=== PATIENT | male | born 1975 | race Caucasian/White ===

== ENCOUNTER → 2019-12-13 12:28 | Outpatient (BNVA) | payer OTHER, SELFPAY | PROVIDERS: PCP Internal Medicine; Visit Provider Orthopaedic Surgery | DX: M25.562 Pain in left knee (principal); Z98.890 Other specified postprocedural states | CPT/HCPCS: 99024; 99212 ==

== ENCOUNTER → 2020-01-31 13:31 | Outpatient (BNVA) | payer OTHER, SELFPAY | PROVIDERS: Visit Provider Orthopaedic Surgery | DX: Z98.890 Other specified postprocedural states (principal) | CPT/HCPCS: 20610; 99212; J1040 ==

== ENCOUNTER 2020-02-27 09:00 | Outpatient (RCR) | payer OTHER, SELFPAY ==
--- NOTE | 2020-02-27 10:32 | MHC.PT.DC ---
[facility] [place] [facility] [place] [facility] [place] Office [address] [phone] F: [phone] F: [phone] F: [phone] F: [phone] Physical Therapy Discharge Report Diagnosis: HX OF MENISCECTOMY OF L KNEE. (OCT 27, 2019) Date of Surgery: 10/27/19 Date of Evaluation: 11/25/19 Date of Discharge: Treatments to Date: 24 Cancellations to Date: 0 No Shows to Date: 0 Discharge Status: Discharge Summary: HAS MET MOST PT GOALS, GOOD PERF EX/STRETCHES,(CONTINUES WITH CLICK IN KNEE) DIST BLUE TB AND INFO FOR [employer] (REPORTS HE HAS HAD MEMBERSHIP TO [email or web address] IN PAST). LEFI TODAY =86% (52% AT SOC) Electronically signed by: TACHO LUDWIG PT Please sign and return to therapist. Thank you for your referral.
--- NOTE | 2020-03-17 16:22 | MHC.PT.DC ---
[facility] [place] [facility] [place] Office [address] [phone] F: [phone] F: [phone] F: [phone] F: [phone] Physical Therapy Discharge Report Diagnosis: HX OF MENISCECTOMY OF L KNEE. (OCT 27, 2019) Date of Surgery: 10/27/19 Date of Evaluation: 11/25/19 Date of Discharge: 02/27/20 Treatments to Date: 24 Cancellations to Date: 0 No Shows to Date: 0 Discharge Status: Achieved Goals Improved Function Independent with HEP Discharge Summary: HAS MET MOST PT GOALS, GOOD PERF EX/STRETCHES,(CONTINUES WITH CLICK IN KNEE) DIST BLUE TB AND INFO FOR [employer] (REPORTS HE HAS HAD MEMBERSHIP TO [facility] IN PAST). LEFI TODAY =86% (52% AT SOC) [ End ] Electronically signed by: TACHO LUDWIG PT Please sign and return to therapist. Thank you for your referral.
== END 2020-03-21 13:39 | disposition other institution (70) ==
LOC: HO.PT 09:00
PROVIDERS: Visit Provider Physician Assistant
DX: Z47.89 Encounter for other orthopedic aftercare (principal); Z98.890 Other specified postprocedural states
CPT/HCPCS: 97035; 97110; 97140; 97530

== ENCOUNTER → 2020-03-13 09:44 | Outpatient (BNVA) | payer OTHER, SELFPAY | PROVIDERS: PCP Internal Medicine; Visit Provider Orthopaedic Surgery | DX: Z76.89 Persons encountering health services in other specified circumstances (principal) ==

== ENCOUNTER 2023-11-03 13:54 | Outpatient (AMB) | payer OTHER, SELFPAY ==
--- NOTE | 2023-11-03 13:57 | AM.OFFWIN_ITS ---
Intake Intake Visit Reasons: EP dizzy, nausea Intake Note: pt c/o Patient Tobacco Use Status: Never used Tobacco Allergies No Known Allergies [No Known Allergies*] Allergy (Verified 09/04/21 11:36) PFSH Medical History Bilateral post-traumatic osteoarthritis of knee Complex tear of medial meniscus, current injury, left knee, subsequent encounter Surgical History History of meniscectomy of left knee S/P left knee arthroscopy Family History Father CVD (cardiovascular disease) Mother No problems noted. 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
--- NOTE | 2023-11-03 13:57 | MHC.OFFWIV ---
Intake Vital Signs 11/03/23 13:58 Height 5 ft 11 in Weight 213 lb BMI 29.7 BP 120/82 Blood Pressure Location Rt brachial Position Sitting Pulse 66 Pulse Source Pulse Oximeter Pulse Oximetry (%) 98 Oxygen Delivery Method Room Air Intake Visit Reasons: EP dizzy, nausea Intake Note: Patient here for dizziness and nausea that started today. Patient Tobacco Use Status: Never used Tobacco Allergies No Known Allergies [No Known Allergies*] Allergy (Verified 11/03/23 13:59) Do you need a note to return to daycare/school/sports/work: Yes HPI EP dizzy, nausea HPI Details This is a 48-year-old male patient who presents to the walk-in clinic today with report of nausea, vomiting, intermittent dizziness starting this morning. Denies exposure to sick contacts, however did recently travel back from the [place] while on vacation. Reports he vomited twice today, and continues to have some ongoing nausea. Has been able to eat and stay hydrated. Denies any headache or upper respiratory symptoms. Denies any abdominal pain or diarrhea. Denies any dizziness at this current time. Denies any chest pain or palpitations. [facility] Medical History Bilateral post-traumatic osteoarthritis of knee Complex tear of medial meniscus, current injury, left knee, subsequent encounter Surgical History History of meniscectomy of left knee S/P left knee arthroscopy Family History Father CVD (cardiovascular disease) Mother No problems noted. 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 Current occupational exposures/hazards: No Cognitive needs: No Hearing needs: No Vision needs: No Review of Systems Const All systems reviewed & are unremarkable except as noted in HPI and below Physical Exam Vital Signs: Last Vital Signs Pulse 66 11/03/23 13:58 BP 120/82 11/03/23 13:58 Pulse Ox 98 11/03/23 13:58 Oxygen Delivery Method Room Air 11/03/23 13:58 BMI result Body Mass Index 29.7 Const General: cooperative and no acute distress Orientation/consciousness: patient oriented x3 HEENT Head: Yes normal to inspection Ears: hearing grossly normal bilaterally and TM's normal bilaterally General nose exam: Normal external nose present and Normal nasal mucous membranes and turbinates present Face and sinus: Yes normal facial exam Mouth: Normal oral and palatal mucosa present Throat: Yes posterior oropharynx normal Eyes Pupils: Equal, round and reactive pupils present and Pupil accommodation reflex normal EOM: EOMs intact bilaterally Direct Ophthalmoscopy: normal light reflex and no photophobia Neck Neck: Yes no lymphadenopathy Resp Effort & Inspection: normal respiratory effort Auscultation: clear to auscultation bilaterally Cardio Rate: regular rate Rhythm: regular rhythm GI Inspection: Yes normal to inspection Palpation (GI): Soft to palpation (nontender) Skin General skin exam: no rashes or lesions noted Neuro General: patient oriented x3 and gait normal Cranial nerves: Yes Equal, round and reactive pupils present and Yes Nystagmus not present Extrem General: Yes capillary refill normal and Yes no clubbing, cyanosis or edema Psych Appearance: grossly normal Mental Status: mental status grossly normal Speech and movement: Normal speech and movement present Assessment & Plan Assessment & Plan (1) Nausea & vomiting: Code(s): R11.2 - Nausea with vomiting, unspecified Qualifiers: Vomiting type: unspecified Qualified Code(s): R11.2 - Nausea with vomiting, unspecified Plan: Symptoms consistent with likely viral illness. Vitals and assessment are normal at this time. I have prescribed patient on ondansetron for his nausea, and we reviewed indications, use, possible side effects of medication. We discussed importance of adequate hydration and healthy food intake as tolerated. I provided him with a work note as requesting and also sent a viral swab for COVID/flu/RSV. Patient aware he will be notified with results once these are available. If dizziness worsens or new symptoms develop, he can return to the clinic for further evaluation. We otherwise reviewed conservative measures. He verbalizes understanding and agrees to plan. Orders: Orders SARS-CoV2/FLU/RSV Today J06.9 - Acute upper respiratory infection, unspecified Medications: New ondansetron HCl Take one tablet every 8 hours by mouth as needed for nausea/vomiting. 4 mg PO Q8H PRN 14 tabs 0RF nausea and vomiting R11.2 - Nausea with vomiting, unspecified Coding Level of Care Code Est Pt Level 4 (79162) Diagnoses Nausea and vomiting, unspecified vomiting type R11.2 Vomiting type: unspecified
[2023-11-03 13:58] VITALS: BP 120/82; PULSE 66; O2SAT 98; BMI 29.7
== END 2023-11-03 15:04 | disposition home or self-care (01) ==
PROVIDERS: PCP Hospitalist; Visit Provider Nurse Practitioner Family
DX: R11.2 Nausea with vomiting, unspecified (principal)
CPT/HCPCS: 99214

== ENCOUNTER 2023-11-03 14:53 | Outpatient (REF) | payer OTHER, SELFPAY ==
[2023-11-03 18:36] LABS: Influenza A PCR NEGATIVE (Negative); Influenza B PCR NEGATIVE (Negative); Resp Syncy Virus RNA Qual PCR NEGATIVE (Negative); SARS COV2 PCR INHOUSE NEGATIVE (Negative)
== END 2023-11-03 14:54 | disposition home or self-care (01) ==
LOC: HO.LAB 14:53
PROVIDERS: Visit Provider Nurse Practitioner Family
DX: J06.9 Acute upper respiratory infection, unspecified (principal)
CPT/HCPCS: 0241U

== ENCOUNTER 2024-11-30 04:07 | Emergency (ER) | payer OTHER, SELFPAY ==
--- NOTE | ~2024-11-30 | CT_ITS ---
CLINICAL HISTORY: ? of renal colic, CT abdomen and pelvis without contrast Comparison: None provided Findings: No consolidation or effusion. The gallbladder and solid organs are within normal limits. No renal stones. No bowel obstruction, pneumoperitoneum, or pneumatosis. Pelvic contents unremarkable. The appendix appears nondilated and noninflamed. No fluid collections or adenopathy. No vascular dilation. The bones are intact. IMPRESSION: No acute findings. No bowel obstruction, biliary obstruction or obstructive uropathy. Unremarkable appendix. This document has been electronically signed by: Gabriela Marsh MD on 11/30/2024 06:03:44
[2024-11-30 04:08] VITALS: BP 139/96; PULSE 80; RESP 18; TEMP 37; O2SAT 97; BMI 31.8
[2024-11-30 04:31] LABS: MANUAL DIFF FLAG NO
[2024-11-30 04:34] LABS: Hematocrit 46.6 % (42.0-52.0); Hemoglobin 16.2 g/dl (14.0-18.0); Imm Gran Abs Auto 0.03 X10*3/uL (0.00-0.03); Imm Gran Pct Auto 0.3 % (0.0-0.4); Lymphocytes Absolute Auto 1.7 X10*3/uL (1.2-4.9); Mean Corpuscular HGB Conc 34.8 g/dl (31.0-36.0); Mean Corpuscular Hemoglobin 30.2 pg (27.0-33.0); Mean Corpuscular Volume 86.8 fL (80.0-98.0); NRBC Abs Auto 0.000 X10*3/uL (0.0-0.012); NRBC Pct Auto 0.0 /100WBC (0.0-0.2); Platelet Count 249 X10*3/uL (160-400); Red Blood Count 5.37 X10*6/uL (4.60-5.80); White Blood Count 9.7 X10*3/uL (4.8-10.8)
[2024-11-30 04:45] LABS: Alanine Aminotransferase 25 U/L (0-40); Albumin Level 4.6 g/dL (3.5-5.0); Alkaline Phosphatase 80 U/L (39-117); Anion Gap 14 (12-20); Aspartate Amino Transferase 19 U/L (5-37); Blood Urea Nitrogen 18 mg/dL (9-16); Calcium 9.5 mg/dL (8.4-10.2); Carbon Dioxide 25 mmol/L (22-29); Chloride 106 mmol/L (96-108); Creatinine Clr Calc Pharmacy 109.4; Estimated Glomerular Filt Rate > 60; Lipase 15 U/L (8-78); Magnesium 2.0 mg/dL (1.6-2.6); Potassium 4.2 mmol/L (3.3-5.1); Sodium 141 mmol/L (135-145); Total Protein 7.5 g/dL (6.5-8.0)
--- NOTE | 2024-11-30 05:07 | ED_ITS ---
HPI - General Adult General Chief complaint: Abdominal Pain Stated complaint: abd pain Time Seen by Provider: 11/30/24 04:38 Source: patient Limitations: no limitations and language barrier History of Present Illness ED Provider: Yari Darling PA-C HPI narrative: 49-year-old male with a history of alcohol use disorder, obesity, BPV, anxiety depression, hypertension who presents with abdominal pain since yesterday evening. Patient developed acute onset cramping over suprapubic region. Associated nausea vomiting. Denies dysuria, hematuria, history of kidney stones. Denies mid back pain, flank pain, diarrhea. Patient denies that he is constipated. No abdominal distention or inability to pass flatus. Denies testicular pain or swelling. Related Data Previous Rx's ?Medication ?Instructions ?Recorded acetaminophen 500 mg capsule 1,000 mg (2 x 500 mg) PO TID PRN 05/13/21 pain #90 caps ondansetron HCl 4 mg tablet 4 mg PO Q8H PRN nausea and 11/03/23 vomiting #14 tabs Allergies Allergy/AdvReac Type Severity Reaction Status Date / Time No Known Allergies (No Known Allergy Verified 11/30/24 04:16 Allergies*) Review of Systems 2 Review of Systems: Yes all other systems are reviewed and are negative Constitutional: Constitutional: Denies fatigue and Denies fever(s) Cardiovascular: Cardiovascular: Denies chest pain and Denies dyspnea Respiratory: Respiratory: Denies dyspnea Gastrointestinal: Gastrointestinal: Reports abdominal pain, Denies bloating, Denies constipation, Denies diarrhea, Reports nausea and Reports vomiting Genitourinary: Genitourinary: Denies hematuria, Denies dysuria, Denies flank pain, Denies scrotal swelling and Denies testicular pain Endocrine: Endocrine: Denies fatigue [facility] Past Medical History Attestation statement: The following information was validated with the patient. Medical History Bilateral post-traumatic osteoarthritis of knee Complex tear of medial meniscus, current injury, left knee, subsequent encounter Surgical History History of meniscectomy of left knee S/P left knee arthroscopy Family History Family History Father CVD (cardiovascular disease) Mother No problems noted. 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 Current occupational exposures/hazards: No Cognitive needs: No Hearing needs: No Vision needs: No Physical Exam ED Vital Signs: Vital Signs - 24 hr 11/30/24 04:08 Temperature 98.6 F Pulse Rate 80 Respiratory Rate 18 Blood Pressure 139/96 H Pulse Oximetry 97 Oxygen Delivery Method Room Air BMI result Body Mass Index 31.8 Const Other: Alert, appears uncomfortable Orientation/consciousness: patient oriented x3 Resp Effort & Inspection: normal respiratory effort Cardio Other: Normal peripheral perfusion GI Other: Abdomen is soft, obese, somewhat distended, pain across entire lower abdomen, most focal suprapubic, minimal involuntary guarding to deep palpation General: Yes no CVA tenderness Back/Spine/Pelvis Back: no CVA tenderness Skin Other: Warm dry no rash Neuro General: patient oriented x3, gait normal, no focal motor deficits and CN's II- XI intact bilaterally Psych Other: Cooperative Medications Administered Discontinued Medications Generic Name Dose Route Start Last Admin Trade Name Freq PRN Reason Stop Dose Admin Sodium Chloride 1,000 mls @ 999 mls/hr 11/30/24 05:00 11/30/24 05:11 Ns IV 11/30/24 06:00 999 mls/hr .Q1H1M JOYCELYN Administration Ketorolac Tromethamine 15 mg 11/30/24 04:52 11/30/24 05:11 Ketorolac Tromethamine 15 Mg/Ml Vial IVPUSH 11/30/24 04:53 15 mg ONCE ONE Administration Morphine Sulfate 4 mg 11/30/24 04:52 11/30/24 05:11 Morphine Sulfate 4 Mg/Ml Cartridge IVPUSH 11/30/24 04:53 4 mg ONCE ONE Administration Protocol Ondansetron HCl 4 mg 11/30/24 04:52 11/30/24 05:11 Ondansetron Hcl 4 Mg/2 Ml Vial IVPUSH 11/30/24 04:53 4 mg ONCE ONE Administration Medical Decision Making Medical Decision Making [facility] Narrative: 49-year-old male with a history of alcohol use disorder, obesity, BPV, anxiety depression, hypertension who presents with abdominal pain since yesterday evening. Patient developed acute onset cramping over suprapubic region. Associated nausea vomiting. Denies dysuria, hematuria, history of kidney stones. Denies mid back pain, flank pain, diarrhea. Patient denies that he is constipated. No abdominal distention or inability to pass flatus. Denies testicular pain or swelling. Problem: Hypertension, alcohol use disorder, obesity History: Per patient I have considered the following differential diagnoses: Pyelonephritis, UTI, renal colic, torsion, diverticulitis, constipation, bowel obstruction Plan: Patient having focal pain over the bladder, however he denies urinary symptoms. We will collect a urine sample. He has no flank pain, or CVA tenderness to suggest renal colic or pyelonephritis, however given distribution of discomfort, I am obtaining a CT scan to rule out renal colic. Thought about bowel obstruction, objectively his belly is protuberant, however he denies distention, he has no obstructive symptoms. He could simply just be constipated, although he denies. He has no testicular pain or swelling to suggest torsion. Giving fluids Zofran morphine and Toradol I have independently reviewed the following tests: Labs: No leukocytosis, not anemic, no electrolyte abnormality, urine and fact CT abdomen and pelvis:Comparison: None provided Findings: No consolidation or effusion. The gallbladder and solid organs are within normal limits. No renal stones. No bowel obstruction, pneumoperitoneum, or pneumatosis. Pelvic contents unremarkable. The appendix appears nondilated and noninflamed. No fluid collections or adenopathy. No vascular dilation. The bones are intact. IMPRESSION: No acute findings. No bowel obstruction, biliary obstruction or obstructive uropathy. Unremarkable appendix. Differential Diagnosis Differential Diagnoses: The differential diagnosis associated with the presentation includes See medical decision-making Admission/Observation Consideration of admission/observation: Escalation of care including admission/observation considered Not applicable Lab Data [facility] Lab Attestation statement: I reviewed the patient's lab results. 11/30/24 04:24 11/30/24 04:24 Labs: Lab Results 11/30/24 11/30/24 Range/Units 04:24 05:14 WBC 9.7 (4.8-10.8) X10*3/uL RBC 5.37 (4.60-5.80) X10*6/uL Hgb 16.2 (14.0-18.0) g/dl Hct 46.6 (42.0-52.0) % MCV 86.8 (80.0-98.0) fL MCH 30.2 (27.0-33.0) pg MCHC 34.8 (31.0-36.0) g/dl RDW 13.0 (11.0-16.0) % Plt Count 249 (160-400) X10*3/uL MPV 8.9 L (9.4-12.4) fL Immature Gran % (Auto) 0.3 (0.0-0.4) % Neut % (Auto) 72.1 (45-73) % Lymph % (Auto) 17.7 L (20-40) % Gregory % (Auto) 7.9 (2-11) % Eos % (Auto) 1.7 (0-4) % Baso % (Auto) 0.3 (0-2) % Lymph # (Auto) 1.7 (1.2-4.9) X10*3/uL Gregory # (Auto) 0.8 (0.1-1.2) X10*3/uL Eos # (Auto) 0.2 (0.0-0.4) X10*3/uL Baso # (Auto) 0.0 (0.0-0.2) X10*3/uL Abs Immat Gran (auto) 0.03 (0.00-0.03) X10*3/uL Absolute Neuts (auto) 7.0 (2.0-8.3) x10*3/uL Absolute Nucleated RBC 0.000 (0.0-0.012) X10*3/uL Nucleated RBC % (auto) 0.0 (0.0-0.2) /100WBC Sodium 141 (135-145) mmol/L Potassium 4.2 (3.3-5.1) mmol/L Chloride 106 (96-108) mmol/L Carbon Dioxide 25 (22-29) mmol/L Anion Gap 14 (12-20) BUN 18 H (9-16) mg/dL Creatinine 1.01 (0.5-1.4) mg/dL Estim Creat Clear Calc 109.4 Estimated GFR > 60 Random Glucose 117 H (60-115) mg/dL Calcium 9.5 (8.4-10.2) mg/dL Magnesium 2.0 (1.6-2.6) mg/dL Total Bilirubin 0.9 (0.0-1.0) mg/dL AST 19 (5-37) U/L ALT 25 (0-40) U/L Alkaline Phosphatase 80 (39-117) U/L Total Protein 7.5 (6.5-8.0) g/dL Albumin 4.6 (3.5-5.0) g/dL Lipase 15 (8-78) U/L Urine Color Yellow Urine Appearance Clear Urine pH 5.5 (5.0-9.0) Ur Specific [place] 1.020 (1.005-1.025) Urine Protein Negative (Neg-Trace) mg/dL Urine Glucose (UA) Negative (Negative) mg/dL Urine Ketones Negative (Negative) mg/dL Urine Blood Negative (Negative) Urine Nitrite Negative (Negative) Ur Leukocyte Esterase Negative (Negative) Urine RBC 0-2 (0-2) /HPF Urine WBC 0-5 (0-5) /HPF Ur Squamous Epith Cells 0-2 (0-2) /HPF Urine Bacteria None Seen (None Seen) Hyaline Casts 0-2 (0-2) /LPF Radiology Impression Discussion of test interpretation with radiology: I have reviewed the radiologist's reading. Discharge Plan Discharge Clinical Impression: Abdominal pain, Constipation Patient Disposition: Home, Self-Care Instructions: Constipation (ED), Abdominal Pain (ED) Additional Instructions: You were found to be constipated, there was no acute process on the CT scan. All of your screening labs including your urine sample were normal. See home care instructions. You can use [id number] Colace, this is a stool softener twice a day. Use kjgl-ohb-foenyiv MiraLax, several times a day, until your bowel habits self regulate and you have multiple large volume bowel movements. Follow up with your primary care provider as needed. Prescriptions: No Action acetaminophen 500 mg capsule 1,000 mg PO TID PRN (Reason: pain) Qty: 90 0RF ondansetron HCl 4 mg tablet 4 mg PO Q8H PRN (Reason: nausea and vomiting) Qty: 14 0RF Rx Instructions: Take one tablet every 8 hours by mouth as needed for nausea/vomiting. Stand Alone Forms: Work/School Release Print Language: Samoan
[2024-11-30 05:44] LABS: Appearance Urine Clear; Glucose Urine UA Negative (Negative); PH 5.5 (5.0-9.0); Specific Gravity - Urine 1.020 (1.005-1.025)
--- OUTSIDE RECORDS SUMMARY | 2024-11-30 05:54 | XMS_ITS | Clinical Summary ---
Author Organization [facility] Address [address] [place] [address] Care Team Providers Care Front Edger Name Role Phone Unavailable Primary Care Provider Unavailabl e Source Comments PLEASE NOTE, if this patient is a minor, it may be UNLAWFUL to discuss sensitive information that is contained in these records (such as FAMILY PLANNING, MENTAL HEALTH or SUBSTANCE ABUSE) with the minor patient's parent or other person without the patient's specific authorization.[facility] Immunizations Immunization Administration Dates Next Due Moderna COVID-19 Vaccine, re d cap blue label, 12+ Primary Series 06/25/2020 Social History Tobacco Use Types Packs/Day Years Used Date Smoking Tobacco: Never Assessed Social Connections Answer Date Recorded Connectedness 0 11/12/2023 Financial Resource Strain Answer Date R ecorded Financial Resource Strain 0 2020 Stress Answer Date Recorded Stress 0 02/26/2021 Physical Activity Answer Date Recorded Physical Activity 0 02/26/2021 Food Insecurity Answer Date Recorded Food 0 11/26/2023 Transportation Needs Answer Date Record ed Transportation 0 02/26/2021 Housing Stability Answer Date Recorded Housing 0 02/26/2021 Safety and Environment Answer Date Saroj rded Safety 0 02/26/2021 Utilities Answer Date Recorded Utilities 0 02/26/2021 Employment Answer Date Recorded Stress 0 11/12/2023 Sex and Gender Information Value Date Recorded Sex Assigned at Not on file Legal Sex Male 8:04 AM PDT Gender Identity Not on file Sexual Orientation Not on file Plan of Treatment Health Maintenance Due Date Last Done Comments Anxiety Screening 1976 Diabetes Screening 1976 Hepatitis C Screening 1976 Lipid Screening 1976 Tobacco Screening 1976 HIV Screening 01/07/1991 Hypertension Screening (#1) 01/07/1994 Imm-DTaP/Tdap/Td (1 - Tdap) 01/07/1995 Imm-Hepatitis B (1 of 3 - 19 + 3-dose series) 01/07/1995 CT Colonography 01/07/2021 Colonoscopy 01/07/2021 Colorectal Cancer Screening 01/07/2021 FIT/gFOBT 01/07/2021 Fecal DNA 01/07/2021 Flexible Sigmoidoscopy 01/07/2021 Alcohol and Drug Screen 03/02/2024 Depression Annual Screen 03/02/2024 [id number] ( season) 2024 021, 05/26/2020 Imm-Influenza (#1) 2024 Insurance [facility] [employer]
[2024-11-30 06:32] VITALS: BP 119/81; PULSE 65; RESP 16; TEMP 36.8; O2SAT 96
[2024-11-30 06:43] VITALS: BP 119/81; PULSE 65; RESP 16; TEMP 36.8; O2SAT 96
== END 2024-11-30 06:45 | disposition home or self-care (01) ==
PROVIDERS: Emergency Provider Emergency Medicine; PCP Internal Medicine
DX: K59.00 Constipation, unspecified (principal); R10.9 Unspecified abdominal pain; R11.2 Nausea with vomiting, unspecified
CPT/HCPCS: 36415; 74176; 80053; 81001; 83690; 83735; 85025; 96361; 96374; 96375; 99284; J1885; J2270; J2405

== ENCOUNTER → 2024-11-30 04:47 | Outpatient (BNV) | payer OTHER, SELFPAY | PROVIDERS: Emergency Provider Emergency Medicine; PCP Internal Medicine; Visit Provider Radiology Diagnostic Radiology | DX: R10.24 Suprapubic pain (principal) | CPT/HCPCS: 74176 ==

== ENCOUNTER 2024-12-01 15:10 | Outpatient (AMB) | payer OTHER, SELFPAY ==
[2024-12-01 15:12] VITALS: BP 124/88; PULSE 88; TEMP 36.4; O2SAT 97; BMI 31.6
--- NOTE | 2024-12-01 15:12 | A.OFFPC_ITS ---
Vital Signs 12/01/24 15:12 Height 5 ft 11 in Weight 226 lb 6 oz BMI 31.6 BP 124/88 Blood Pressure Location Lt brachial Position Sitting Pulse 88 Pulse Source Pulse Oximeter Temp 97.5 F Temp Source Temporal Artery Scan Pulse Oximetry (%) 97 Oxygen Delivery Method Room Air Intake Visit Reasons: pain and consumption Geophysical Laboratory Director Required: Yes Geophysical Laboratory Director Language: Korean Allergies No Known Allergies (No Known Allergies*) Allergy (Verified 12/01/24 15:15) Medication List - Last Reconciled 12/01/24 by Denise Cason MD docusate sodium (Dulcolax Stool Softener (docusate)) 100 mg PO DAILY simethicone (Gas Relief (simethicone)) 250 mg PO BID PRN Tobacco use date assessed: 12/01/24 Dental Screening Dental Screen Date: 12/01/24 Did you have a dental visit in the last 12 months?: Yes Did you have a dental problem in the last 6 months where you did not have access to dental care?: No Was dental information given to patient?: Patient has dentist HPI HPI Comments History of Present Illness Details The patient is a 49-year-old male presenting with abdominal pain. The pain began on Thursday at 9 o'clock and was severe enough to warrant a visit to the emergency room the following morning. A CT scan was performed, which showed no significant findings. The patient reports no constipation and has regular bowel movements, with the last one occurring this morning without issues. There is no blood in the stool, and the patient denies any constipation. The patient was prescribed medication for pain management and advised to use Tylenol as needed. The patient was also advised to try Simethicone twice daily and to monitor symptoms. [facility] Medical History Bilateral post-traumatic osteoarthritis of knee Complex tear of medial meniscus, current injury, left knee, subsequent encounter Surgical History History of meniscectomy of left knee S/P left knee arthroscopy Family History Father CVD (cardiovascular disease) Mother No problems noted. Maternal Grandmother Lung cancer Maternal Uncle Lung cancer Sister Cancer Family/Other FH: mental illness Social History Patient Tobacco Use Status: Never used Tobacco e-Cigarette/Vaping Use: Never Used Second Hand Smoke Exposure: No service: No Current occupational status: employed Current occupation: [employer] Current occupational exposures/hazards: No Cognitive needs: No Hearing needs: No Vision needs: No Questionnaire PHQ-9 Over the last 2 weeks, how often have you been bothered by any of the following problems? 1. Little interest or pleasure in doing things: not at all 2. Feeling down, depressed, or hopeless: not at all 3. Trouble falling or staying asleep, or sleeping too much: not at all 4. Feeling tired or having little energy: not at all 5. Poor appetite or overeating: not at all 6. Feeling bad about yourself - or that you are a failure or have let yourself or your family down: not at all 7. Trouble concentrating on things, such as reading the newspaper or watching television: not at all 8. Moving or speaking so slowly that other people could have noticed. Or the opposite - being so fidgety or restless that you have been moving around a lot more than usual: not at all 9. Thoughts that you would be better off or of hurting yourself in some way: not at all Total score: 0 Depression Screening Interpretation: Negative Depression Screening Done: Yes 41618 - PHQ-9 Billing: Yes Source: Developed by Drs. Iván Myrick, Ambar Emerson, Carlos Abel and colleagues, with an educational yanet from [employer]. Thrive Questionnaire Date Thrive assessed: 12/01/24 I am a: Parent/Caregiver What is your living situation today?: I have a steady place to live Within the past 12 months, did the food you bought not last and you didn't have the money to get more?: I choose not to answer this question Within the past 12 months, did you worry whether your food would run out before you got money to buy more?: I choose not to answer this question Do you have trouble paying for medicines?: No Do you have trouble getting transportation to medical appointments?: No Do you have trouble paying your heating and electricity bill?: No Do you have trouble taking care of your child, family member or friend?: No Do you have trouble with day-to-day activities such as bathing, preparing meals, shopping, managing finances, etc.?: No Are you currently unemployed and looking for a job?: No Are you interested in more education?: No Please select the resources that you would like help with: None Currently or been in a relationship where the following occur: No concerns reported THRIVE Score: 0 AUDIT C Alcohol Use Questionnaire (AUDIT-C) 1. How often do you have a drink containing alcohol?: Monthly or less 2. How many drinks containing alcohol do you have on a typical day when you are drinking?: 1 or 2 3. How often do you have six or more drinks on one occasion?: Never Total Score: 1 LEYLA-7 AMB Questionnaire LEYLA-7 Date LEYLA - 7 assessed: 12/01/24 Feeling nervous, anxious, or on edge: 0 = Not at all Not being able to stop or control worryin = Not at all Worrying too much about different things: 0 = Not at all Trouble relaxin = Not at all Being so restless that it is hard to sit still: 0 = Not at all Becoming easily annoyed or irritable: 0 = Not at all Feeling afraid as if something awful might happen: 0 = Not at all Total LEYLA-7 score (0-4 normal; 5-9 mild; 10-14 moderate; 15-21 severe): 0 Source: Developed by Drs. Iván Myrick, Ambar Emerson, Carlos Abel and colleagues, with an educational yanet from [employer]. LEYLA-7 Assessment Billing LEYLA-7 Assessment Tool: LEYLA-7 Assessment 89231 Review of Systems Const Details: Positives besides what was mentioned in HPI are in BOLD Constitutional: No Weight Change, No Fever, No Chills, No Night Sweats, No Fatigue, No Malaise ENT/Mouth: No Hearing Changes, No Ear Pain, No Nasal Congestion, No Sinus Pain, No Hoarseness, No sore throat, No Rhinorrhea, No Swallowing Difficulty Eyes: No Eye Pain, No Swelling, No Redness, No Foreign Body, No Discharge, No Vision Changes Cardiovascular: No Chest Pain, No SOB, No PND, No Dyspnea on Exertion, No Orthopnea, No Claudication, No Edema, No Palpitations Respiratory: No Cough, No Sputum, No Wheezing, No Smoke Exposure, No Dyspnea Gastrointestinal: No Nausea, No Vomiting, No Diarrhea, No Constipation, No Pain, No Heartburn, No Anorexia, No Dysphagia, No Hematochezia, No Melena, No Flatulence, No Jaundice Genitourinary: No Dysmenorrhea, No DUB, No Dyspareunia, No Dysuria, No Urinary Frequency, No Hematuria, No Urinary Incontinence, No Urgency, No Flank Pain, No Urinary Flow Changes, No Hesitancy Musculoskeletal: No Arthralgias, No Myalgias, No Joint Swelling, No Joint Stiffness, No Back Pain, No Neck Pain, No Injury History Skin: No Skin Lesions, No Pruritis, No Hair Changes, No Breast/Skin Changes, No Nipple Discharge Neuro: No Weakness, No Numbness, No Paresthesias, No Loss of Consciousness, No Syncope, No Dizziness, No Headache, No Coordination Changes, No Recent Falls Psych: No Anxiety/Panic, No Depression, No Insomnia, No Personality Changes, No Delusions, No Rumination, No SI/HI/AH/VH, No Social Issues, No Memory Changes, No Violence/Abuse Hx., No Eating Concerns Heme/Lymph: No Bruising, No Bleeding, No Transfusions History, No Lymphadenopathy Endocrine: No Polyuria, No Polydipsia, No Temperature Intolerance Physical exam (Primary Care) Vital Signs: Last Vital Signs Temp 97.5 F 12/01/24 15:12 Pulse 88 12/01/24 15:12 BP 124/88 12/01/24 15:12 Pulse Ox 97 12/01/24 15:12 Oxygen Delivery Method Room Air 12/01/24 15:12 BMI result Body Mass Index 31.6 Tobacco/Smoking Status: Tobacco use Status Tobacco use date assessed 12/01/24 12/01/24 15:17 Patient Tobacco Use Status Never used Tobacco 12/01/24 15:17 e-Cigarette/Vaping Use Never Used 12/01/24 15:17 PHQ-9: PHQ-9 Score PHQ-9: Total score 0 12/01/24 15:17 Depression Screening Interpretation: Negative Thrive Assessment: Date of Thrive Assessment Date Thrive assessed 12/01/24 12/01/24 15:17 Currently or been in a relationship where the following occur: No concerns reported Const Other: Pertinent findings are in BOLD GENERAL APPEARANCE NAD, activity normal for age, well developed/ well nourished, no cyanosis, pallor, or diaphoresis. EYES lids/conjunctiva normal. EARS/NOSE/THROAT Mucous membranes moist, nares normal, lips/teeth normal uvula midline without oral pharyngeal erythema, exudate or swelling TMs normal bilaterally. No lymphangitis/lymphedema. HEAD/NECK normocephalic atraumatic, no facial trauma, neck is supple. RESPIRATORY respiratory effort normal, speaks in full sentences, no tripod position, no accessory muscle use. Lungs clear to auscultation without rhonchi, wheezes, rales CARDIAC Regular rate and rhythm, no edema. ABDOMINAL Soft, ND/NT. No evidence of fluid wave. No pulsatile masses on exam, rebound tenderness, Hughes sign or pain over Mcburney's point. MUSCLES/EXTREMITIES No abnormal range of motion, no swelling. SKIN Warm, pink and dry. No rashes, dermatoses, petechiae or lesions. NEUROLOGICAL Speech is clear and appropriate. Normal level of consciousness. Gait and coordination are normal. 5/5 strength in all extremities. PSYCH Normal mood and affect. Judgement/competence is appropriate Coding Level of Care Code Est Pt Level 3 (69347) Diagnoses Abdominal pain R10.9 Additional Codes LEYLA-7 Assessment Billing - LEYLA-7 Assessment Tool: LEYLA-7 Assessment 59147 ([id number]) PHQ-9 - 87885 - PHQ-9 Billing: Yes ([id number]) Time Spent (min) 20 Assessment & Plan Assessment & Plan (1) Abdominal pain: Code(s): R10.9 - Unspecified abdominal pain Category: Medical Plan: - Prescribed medication for pain management and advised to use Tylenol as needed. - Advised to try another medication twice daily and monitor symptoms. - Instructed to return if pain worsens or does not improve. Plan I discussed with the patient that the CT scan showed no significant findings, which is reassuring. I recommended using Tylenol for pain management and prescribed an additional medication to be taken twice daily. I advised the patient to monitor symptoms and return if the pain worsens or does not improve. Medications: New simethicone (Gas Relief (simethicone)) 250 mg PO BID PRN 60 caps 0RF abdominal distention
--- OUTSIDE RECORDS SUMMARY | 2024-12-01 16:32 | XMS_ITS | Clinical Summary ---
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
== END 2024-12-01 15:34 | disposition home or self-care (01) ==
LOC: HO.HMCH 15:11
PROVIDERS: PCP Internal Medicine; Visit Provider Internal Medicine
DX: R10.9 Unspecified abdominal pain (principal)

== ENCOUNTER → 2024-12-01 15:10 | Outpatient (BNVA) | payer OTHER, SELFPAY | PROVIDERS: PCP Internal Medicine; Visit Provider Internal Medicine | DX: R10.9 Unspecified abdominal pain (principal) | CPT/HCPCS: 96127 ==